=== PATIENT | female | born 1990 | race Two or more races ===

== ENCOUNTER 2023-11-25 17:41 | Emergency (ER) | payer OTHER ==
[~2023-11-25] VITALS: Ht 162.6 cm; Wt 95.0 kg
[2023-11-25 19:34] LABS: Basophils # (auto) 0.1 10 ^3/uL (0-0.2); Eosinophils # (auto) 0.1 10 ^3/uL (0-0.8); Eosinophils % (auto) 0.6 % (0.0-7.0); Hematocrit 39.9 % (36.0-46.0); Hemoglobin 13.1 g/dL (12.2-16.2); Lymphocytes # (auto) 2.3 10 ^3/uL (0.4-5.4); Lymphocytes % (auto) 22.1 % (10.0-50.0); Mean Corpuscular Hemoglobin 29.8 pg (28.0-32.0); Mean Corpuscular Hgb Conc. 32.9 g/dL (32.0-36.0); Mean Corpuscular Volume 90.5 fL (80.0-100.0); Monocytes # (auto) 0.4 10 ^3/uL (0-1.3); Monocytes % (auto) 4.3 % (0.0-12.0); Neutrophils # (auto) 7.5 10 ^3/uL (1.6-8.6); Red Blood Cells 4.41 10^6/uL (4.0-5.20); Red Cell Distribution Width 14.2 % (11.8-14.3); White Blood Cell 10.5 10^3/uL (4.4-10.8)
[2023-11-25] MEDS: IOHEXOL 300 MG/ML 100ML BOTTLE IJ ONE (19:43)
[2023-11-25 19:55] LABS: Alanine Aminotransferase 31 U/L (7-40); Albumin 4.3 g/dL (3.2-4.8); Alkaline Phosphatase 95 U/L (46-116); Anion Gap 5 (5-15); Aspartate Aminotransferase 25 U/L (13-40); BUN/Creatinine Ratio 17.6 (10.0-20.0); Blood Urea Nitrogen 12 mg/dL (9-23); Calcium 9.1 mg/dL (8.5-10.1); Carbon Dioxide 27 mmol/L (20-30); Chloride 107 mmol/L (98-107); Glucose 115 mg/dL (74-106); Sodium 139 mmol/L (136-145)
[2023-11-25 19:56] LABS: Bilirubin, Total 0.3 mg/dL (0.2-1.0); Total Protein 7.7 g/dL (5.7-8.2)
[2023-11-25] MEDS: IOHEXOL 350 MG/ML 100ML IJ ONE (20:01)
[2023-11-25] MEDS ORDERED: NAP500T PO (21:01)
[2023-11-25] MEDS ORDERED: TRAM-711 PO (21:01)
[2023-11-25 21:30] VITALS: BP 139/89; PULSE 78; RESP 14; TEMP 98.2; O2SAT 96
[2023-11-25] MEDS: KETOROLAC TROMETH 30 MG/ML 1ML VIAL IV ONE (21:31)
== END 2023-11-25 21:42 | disposition home or self-care (01) ==
LOC: ER 17:41 → EDBD 17:41 → ER 21:42
DX: R51.9 Headache, unspecified (principal); M54.2 Cervicalgia; R07.89 Other chest pain; M25.562 Pain in left knee; V49.9XXA Car occupant (driver) (passenger) injured in unspecified traffic accident, initial encounter; Y93.I9 Activity, other involving external motion; Y92.89 Other specified places as the place of occurrence of the external cause; Y99.8 Other external cause status
CPT/HCPCS: 36415; 70450; 71260; 72125; 73562; 74177; 80053; 85025; 96374; 99285; J1885; Q9967